=== PATIENT | female | born 1955 | race Caucasian/White ===

== ENCOUNTER → 2019-10-16 | Outpatient (CLI) | payer BC, OTHER ==
[~2019-10-16] VITALS: Ht 162.6 cm; Wt 115.7 kg
[~2019-10-16] MED LIST: ACCUPRIL40 MG PO; FLAX SEED OIL1 EACH PO; GLUCOSAMINE &1 EACH PO; GLUCOTROL5 MG PO; METFORMIN HCL500 M3 PO; MULTIVITAMINS PO; OMEPRAZOLE 20 M20 M1 PO; PRAVACHOL 20 MG20 M1 PO; PROAIR HFA8.5 GM INH; PROZAC20 M1 PO; SUPER B-50 COM1 EACH PO; TIROSINT88 MCG PO
[2019-10-16 13:24] LABS: HEMATOCRIT 37.6 % (37.0-47.0); HEMOGLOBIN 12.1 gm/dL (12.0-15.0); MCH 27.3 pg (26.0-34.0); MCHC 32.3 g/dL (28.0-37.0); MCV 84.5 fL (80.0-100.0); RBC 4.45 mil/uL (4.20-5.00); RDW 15.7 % (10.5-14.5); WBC 8.8 thou/uL (4.0-11.0)
[2019-10-16 13:24] LABS: URINE BILIRUBIN NEGATIVE (Negative); URINE BLOOD NEGATIVE (Negative); URINE CLARITY CLEAR; URINE COLOR YELLOW; URINE GLUCOSE-RANDOM* NEGATIVE (Negative); URINE KETONES NEGATIVE (Negative); URINE LEUKOCYTES-REFLEX NEGATIVE (Negative); URINE NITRITE-REFLEX NEGATIVE (Negative); URINE PROTEIN (DIPSTICK) NEGATIVE (Negative); URINE SPECIFIC GRAVITY <= 1.005 (1.005-1.035); URINE UROBILINOGEN 0.2 E.U./dl (0.2-1.0)
[2019-10-16 13:36] LABS: PROTIME 10.2 Seconds (9.3-11.4)
[2019-10-17 02:07] LABS: GLYCOHEMOGLOBIN (HGB A1C) 5.8 % (4.8-5.6)
--- NOTE | 2019-10-17 08:15 | EKG ---
[facility] Giovany Guti[address]rez [place] [address] ELECTROCARDIOGRAM REPORT Name: KRISTIAN QUINTANILLA Room #: PRE IN M.R.#: [id number] Admission: Attend Phys: Tristian Marquez MD Discharge: Date of : 57 Report #: [id number] THIS REPORT FOR: cc: Miguel Baldwin MD,Benedicto Busby,Zander Blue MD [facility] ~ THIS REPORT FOR: //name// [facility] Test Date: 2019-10-16 Test Time: 12:55:43 Pat Name: KRISTIAN QUINTANILLA Department: Room: Gender: Ophthalmic Aide: JULIANNA JONES : 1955 Requested By: Tristian Marquez Order Number: [id number] MD: Zander Busby Measurements Intervals [place] Rate: 83 P: 58 AK: 164 QRS: 36 QRSD: 88 T: 48 QT: 394 QTc: 463 Interpretive Statements Sinus rhythm Abnormal R-wave progression, early transition No previous ECG available for comparison Electronically Signed On 10-17-2019 8:13:35 CDT by Zander Busby [email or web address] <ELECTRONICALLY SIGNED> By: Zander Busby MD, FACC 10/17/19 0813 [id number] Zander Busby MD, [facility] /EPI
== END ==
LOC: PRE 08-27 11:16 → PAC 08:00 → PRE 10-22 10:22 → EDSTATUS 10-22 12:45 → PRE 10-22 13:54
PROVIDERS: ATTEND Orthopaedic Surgery
DX: R94.31 Abnormal electrocardiogram [ECG] [EKG] (principal); M17.12 Unilateral primary osteoarthritis, left knee